=== PATIENT | male | born 1960 | race Caucasian/White ===

== ENCOUNTER 2017-03-12 12:51 | Day surgery (SDC) | payer OTHER ==
[~2017-03-12 12:51] MED LIST: ASPI81CH CHEW; LEVO150T7 PO; NYSTPOW TOPICAL; SIMV40TA PO
--- NOTE | 2017-03-12 16:10 | RADRPT ---
EXAM DATE/TIME: 03/12/2017 13:17 [place] COMPARISON: No previous studies available for comparison. EXTERNAL COMPARISON : [facility], CT ABDOMEN AND PELVIS, January 10, 2017 INDICATIONS : Enlarged lymph node right inguinal. MEDICAL HISTORY : Gastroesophageal reflux disease. Lymphadenopathy. Anal fissures. Colon polyps. SURGICAL HISTORY : Anal fissurectomy. Colonoscopy. Hernia repair. ENCOUNTER: Initial ACUITY: 3 months PAIN SCORE: 0/10 LOCATION: Right groin. AREA EVALUATED: Right inguinal region FINDINGS: The patient was evaluated for possible biopsy of the enlarged right inguinal nodes seen on outside [facility]. No enlarged lymph nodes are identified on the current examination and biopsy was not performed. CONCLUSION: 1. No adenopathy identified Facundo Tafoya MD on March 12, 2017 at 16:08 Board Certified Radiologist. This report was verified electronically.
[2017-03-13] MEDS ORDERED: SIMV40TA PO (06:42)
== END 2017-03-12 14:22 | disposition home or self-care (01) ==
LOC: HRAD 12:51 → HRIP 12:53 → HRAD 14:22
PROVIDERS: ATTEND Surgery
DX: R59.0 Localized enlarged lymph nodes (principal)
CPT/HCPCS: 76882